=== PATIENT | female | born 1975 | race Caucasian/White ===

== ENCOUNTER 2020-06-13 10:56 | Emergency (ER) | payer MEDICAID ==
[~2020-06-13] VITALS: Ht 172.7 cm; Wt 190.5 kg
--- NOTE | 2020-06-13 11:15 | NUR ---
Patient to ER bed 7 to gown for evaluation. Side rails up. Report given to ALBA Salinas.
[2020-06-13 11:21] VITALS: BP_SYST 160
--- NOTE | 2020-06-13 11:21 | NUR ---
Patient came from home for evaluation of dysuria. No other complaints at this time.
--- NOTE | 2020-06-13 11:21 | NUR ---
Chong bruno in ED - 06/13/20 at 1124 by RAHEL Patient to bed 7 to [facility] for evaluation. Side rails up.
--- NOTE | 2020-06-13 11:21 | NUR ---
ER Dr. Peoples at bedside examining patient.
[2020-06-13] MEDS ORDERED: PHENAZOPYRIDINE HCL 100 MG TABLET PO ONE (11:30)
[2020-06-13 12:00] VITALS: BP_SYST 160
--- NOTE | 2020-06-13 12:00 | NUR ---
Patient given written and verbal discharge instructions and verbalizes understanding. ER MD discussed with patient the results and treatment provided. Patient in stable condition. ID arm band removed. Rx of Keflex and Pyridium given. Patient educated on pain management and to follow up with PMD. Pain Scale 0. Opportunity for questions provided and answered. Medication side effect fact sheet provided.
== END 2020-06-13 12:00 | disposition home or self-care (01) ==
LOC: SED 10:56
DX: N39.0 Urinary tract infection, site not specified (principal)
CPT/HCPCS: 81002; 87086; 99283